=== PATIENT | female | born 1990 | race Caucasian/White ===

== ENCOUNTER 2018-04-27 23:34 | Emergency (ER) | payer OTHER ==
[2018-04-27 23:48] VITALS: RESP 16
[2018-04-28] MEDS ORDERED: Alum-Mag Hydrox-Simethicone Susp (30 mL) PO STA (00:10)
[2018-04-28] MEDS ORDERED: Alum-Mag Hydrox-Simethicone Susp (30 mL) ONE (00:15)
--- NOTE | 2018-04-28 01:02 | C.PDOC ---
History Of Present Illness 28 yo female c/o "knot in my esophagus" x 1 year. She notes that for the last year she has had FB sensation in her throat and chest. Worse with food intake. Notes she had endoscope 2 years ago and was diagnosed with gastritis. Admits to feeling anxious and nervous with the symptoms. She saw her PMD last week for the symptoms who gave her allergy medication. She has a GI appt scheduled in 2 weeks. Denies sob, chest pain, abdominal pain, fever, n/v/d, or headache. Time Seen by Provider: 04/28/18 00:05 Chief Complaint (Nursing): ENT Problem History Per: Patient History/Exam Limitations: no limitations Onset/Duration Of Symptoms: Intermittent Episodes Current Symptoms Are (Timing): Still Present Past Medical History Vital Signs: Last Vital Signs Temp 98.7 F 04/27/18 23:42 Pulse 82 04/27/18 23:42 Resp 16 04/27/18 23:42 BP 105/71 04/27/18 23:42 Pulse Ox 96 04/27/18 23:42 Family History: States: Unknown Family Hx - Social History Hx Alcohol Use: Yes Hx Substance Use: No - Immunization History Hx Tetanus Toxoid Vaccination: No Hx Influenza Vaccination: No Hx Pneumococcal Vaccination: No Review Of Systems Except As Marked, All Systems Reviewed And Found Negative. Physical Exam - Physical Exam Appears: Well, Non-toxic, No Acute Distress Skin: Normal Color, Warm, Dry Head: Atraumatic, Normacephalic Eye(s): bilateral: Normal Inspection, EOMI Nose: Flaring Oral Mucosa: Moist Throat: Normal, No Erythema, No Exudate Neck: Normal ROM, Supple Chest: Symmetrical Cardiovascular: Rhythm Regular Respiratory: Normal Breath Sounds, No Accessory Muscle Use Gastrointestinal/Abdominal: Normal Exam, Soft, No Tenderness Extremity: Normal ROM Neurological/Psych: Oriented x3, Normal Speech, Normal Cognition Gait: Steady ED Course And Treatment - Laboratory Results Result Diagrams: 04/28/18 02:29 04/28/18 02:29 O2 Sat by Pulse Oximetry: 96 - CT Scan/US CT Abdomen with Chest Other Rad Studies (CT/US): Read By Radiologist, Radiology Report Reviewed CT/US Interpretation: EXAM: CT Chest With IV contrast. CT Abdomen With IV contrast. CLINICAL HISTORY: Chest pain, epigastric pain. TECHNIQUE: Axial computed tomography images of the chest and abdomen with intravenous contrast. With; VISI 100 MLS. COMPARISON: None provided. FINDINGS: CHEST: LUNGS: No pulmonary mass. The lungs appear essentially clear. PLEURAL SPACES: No pneumothorax evident. No pleural effusions. HEART: No cardiomegaly. No significant pericardial effusion. LYMPH NODES: No lymphadenopathy is evident. ABDOMEN: LIVER: Unremarkable. No focal lesions. GALLBLADDER AND BILE DUCTS: The gallbladder appears within normal limits. No radioopaque gallstones are seen. No biliary ductal dilatation is evident. PANCREAS: Unremarkable. SPLEEN: Unremarkable. ADRENAL GLANDS: Unremarkable. KIDNEYS AND URETERS: Unremarkable. No hydronephrosis or nephrolithiasis. STOMACH AND BOWEL: Unremarkable appearance of the stomach and bowel. No evidence of bowel obstruction. No evidence suggesting enteritis or colitis. PERITONEUM: No free fluid. No free air. VASCULATURE: No evidence of abdominal aortic aneurysm. BONES: No acute osseous abnormality. IMPRESSION: No acute intra-thoracic or intra-abdominal abnormality. Progress Note: Maalox ordered. On re-evaluation, pt is laying flat and sleeping. When awoken, pt notes pain persists. Labs and protonix ordered. On re-evaluation, pt is tolerating PO. Afebrile. No SOB. No n/v. abdomen soft nontender. Instructed to follow up with GI in 1-2 days . Discussed return precautions. Disposition - Disposition Referrals: Sal Castillo MD [Staff Provider] - Disposition: HOME/ ROUTINE Disposition Time: 01:02 Condition: STABLE Additional Instructions: Follow up with the GI doctor in 1-2 days. Return to ER if symptoms persist or worsen. Instructions: Gastritis (DC) Forms: [employer] (Yakut) - Clinical Impression Clinical Impression: Sensation of foreign body
[2018-04-28] MEDS ORDERED: Sodium Chloride 0.9% 1,000 ML IV ONE (01:21)
[2018-04-28 02:33] LABS: EOS % 0.5 % (0.0-4.0); HEMOGLOBIN 12.4 g/dL (11.0-16.0); LYMPH # 0.7 K/uL (1.0-4.3); LYMPH % 14.4 % (20.0-40.0); MEAN CELL VOLUME 92.2 fL (81.0-99.0); MEAN CORPUSCULAR HEMOGLOBIN 31.5 pg (27.0-31.0); MEAN CORPUSCULAR HGB CONC 34.2 g/dL (33.0-37.0); MEAN PLATELET VOLUME 6.2 fL (7.2-11.7); MONO # 0.3 K/uL (0.0-0.8); MONO % 6.6 % (0.0-10.0); NEUT # 3.5 K/uL (1.8-7.0); NEUT % 77.5 % (50.0-75.0); NRBC % 0.1 % (0.0-2.0); RBC 3.94 Mil/uL (3.80-5.20); RED CELL DISTRIBUTION WIDTH 13.6 % (11.5-14.5); WHITE BLOOD COUNT 4.5 K/uL (4.8-10.8)
[2018-04-28 02:44] LABS: ALB/GLOB RATIO 1.4 (1.0-2.1); ALBUMIN 4.1 g/dL (3.5-5.0); ALT/SGPT 21 U/L (9-52); AST/SGOT 14 U/L (14-36); BLOOD UREA NITROGEN 9 mg/dL (7-17); CALCIUM 8.6 mg/dl (8.6-10.4); GFR NON-AFRICAN AMERICAN > 60
[2018-04-28] MEDS ORDERED: Iodixanol 320 mg/ml 150 ml Bottle IV ONE (03:44)
[2018-04-28 04:39] VITALS: BP 101/65; PULSE 66; TEMP 98.3
[2018-04-28 05:14] VITALS: O2SAT 96
--- NOTE | 2018-04-28 12:23 | RAD ---
Date of service: 04/28/2018 HISTORY: pain COMPARISON: No prior. TECHNIQUE: Chest PA and lateral FINDINGS: LUNGS: No active pulmonary disease. PLEURA: No significant pleural effusion identified. No pneumothorax apparent. CARDIOVASCULAR: Normal. OSSEOUS STRUCTURES: No significant abnormalities. VISUALIZED UPPER ABDOMEN: Normal. OTHER FINDINGS: None. IMPRESSION: No active disease.
--- NOTE | 2018-04-28 14:06 | CT ---
Date of service: 04/28/2018 PROCEDURE: CT Chest, Abdomen with intravenous contrast HISTORY: Pain COMPARISON: Correlation made with chest radiograph obtained earlier same day. TECHNIQUE: Contiguous helical/transaxial sections of the chest and abdomen performed following intravenous injection of 100 cc Visipaque 320 contrast material. Additional 2D sagittal and coronal reformats generated Radiation dose: Total exam DLP = 289.25 mGy-cm. This CT exam was performed using one or more of the following dose reduction techniques: Automated exposure control, adjustment of the mA and/or kV according to patient size, and/or use of iterative reconstruction technique.. FINDINGS: CT CHEST WITH CONTRAST: LUNGS: Clear. No nodule, mass or consolidation. MEDIASTINUM: Heart size is within range of normal. No significant pericardial effusion. Ascending thoracic aorta measures approximately 2.4 cm and descending thoracic aorta measures approximately 1.9 cm. Pulmonary trunk measures approximately 2.8 cm; rule out underlying pulmonary arterial hypertension. Small hiatal hernia. LYMPH NODES: No significant mediastinal or hilar adenopathy. Central airways midline and patent. Nose large central endoluminal lesions. PLEURA: Unremarkable. No pneumothorax. No pleural fluid. BONES: Unremarkable. OTHER FINDINGS: None. CT ABDOMEN AND PELVIS: LIVER: Liver exhibits on normal size measuring approximately 15 cm in CC dimension mild fatty hepatic infiltration. There is a vague round/elliptical shaped approximately 17 mm x 13 mm area of low attenuation along the anterior margin of the lateral segment left lobe liver bordering the fissure that is of uncertain etiology though could represent some localized fat. Possibility of a cyst or hemangioma not excluded. Consider follow-up nonemergent triple phase CT scan of the liver for further evaluation. GALLBLADDER AND BILE DUCTS: Gallbladder physiologically distended. No evidence of intraluminal gallbladder calculi. PANCREAS: Unremarkable. No gross lesion or ductal dilatation. SPLEEN: Unremarkable. ADRENALS: No adrenal lesions are identified. KIDNEYS AND URETERS: Kidneys demonstrate symmetric nephrograms. VASCULATURE: Unremarkable. No aortic aneurysm. BOWEL: The evaluation of the bowel is somewhat limited due to the lack of oral contrast material as well as incomplete visualization of the some of the distal loops of small bowel and large bowel in the pelvis which was not imaged. The stomach is incompletely distended which presumably in part accounts for thick-walled appearance.. The visualized loops of small bowel exhibit normal contour and caliber. No evidence of acute mechanical small bowel obstruction. Note that there does appear to be some minimal wall thickening of a few loops of small bowel in the left aspect of the abdomen; rule out mild enteritis. APPENDIX: Not visualized PERITONEUM: Unremarkable. No free fluid. No free air. LYMPH NODES: Unremarkable. No enlarged lymph nodes. BLADDER: Not visualized. REPRODUCTIVE: Not visualized BONES: No acute fracture. OTHER FINDINGS: None. IMPRESSION: No acute intra thoracic or intra abdominal pathology. There is a small vague area low attenuation anterior aspect left lobe liver bordering the fissure that is of uncertain etiology and could represent localized fatty infiltration however possibility of a hemangioma not excluded. Follow-up nonemergent triple phase CT scan of the liver recommended for further evaluation. Note this report was placed in [facility] review folder for follow up.
== END 2018-04-28 05:00 | disposition home or self-care (01) ==
LOC: C.ER 23:34
DX: R09.89 Other specified symptoms and signs involving the circulatory and respiratory systems (principal)
CPT/HCPCS: 71046; 71260; 74160; 80053; 85025; 96361; 96374; 99284; C9113; J7030; Q9967